=== PATIENT | male | born 1930 | race African-American/Black ===

== ENCOUNTER 2017-01-19 13:53 | Emergency (ER) | payer OTHER ==
[~2017-01-19] VITALS: Ht 182.9 cm; Wt 73.0 kg
[~2017-01-19 13:53] MED LIST: NIFE60TA7
[2017-01-19 13:57] VITALS: BP 120/63
[2017-01-19 15:21] LABS: BASOPHILS % 0.6 % (0.0-2.0); EOSINOPHILS % 0.5 % (0.0-5.0); HEMATOCRIT. 44.1 % (42.0-52.0); HEMOGLOBIN. 14.7 g/dL (14.0-18.0); LYMPHOCYTES % 12.6 % (20.0-50.0); MEAN CORPUSCULAR HEMOGLOBIN 28.8 pg (28.0-32.0); MEAN CORPUSCULAR VOLUME 86.2 fL (80.0-94.0); MEAN PLATELET VOLUME 8.1 fl (7.4-10.4); MONOCYTES % 6.6 % (2.0-8.0); NEUTROPHILS % 79.7 % (40.0-76.0); PLATELET 130 x1000/uL (130-400); RED BLOOD CELL COUNT 5.12 mill/uL (4.7-6.1); RED CELL DISTRIBUTION WIDTH 14.9 % (11.6-14.6)
[2017-01-19 15:25] LABS: CHLORIDE 103 mEq/L (98-107)
[2017-01-19 15:29] LABS: CARBON DIOXIDE 25 mEq/L (21-32)
[2017-01-19 16:35] LABS: CLARITY URINE CLEAR (CLEAR); COLOR URINE YELLOW (YELLOW); GLUCOSE URINE NEGATIVE (NEGATIVE); KETONES URINE NEGATIVE (NEGATIVE); LEUKOCYTE ESTERASE URINE NEGATIVE (NEGATIVE); NITRITE URINE NEGATIVE (NEGATIVE); OCCULT BLOOD URINE NEGATIVE (NEGATIVE); PROTEIN URINE 1+ (NEGATIVE); SPECIFIC GRAVITY URINE 1.012 (1.005-1.030); UROBILINOGEN URINE 0.2 E.U./dL (0.2-1.0)
== END 2017-01-19 17:31 | disposition home or self-care (01) ==
LOC: ER 14:40
DX: R53.1 Weakness (principal); I10 Essential (primary) hypertension; Z88.0 Allergy status to penicillin
CPT/HCPCS: 36415; 71010; 80053; 81001; 85025; 93005; 99285